=== PATIENT | male | born 2000 | race Caucasian/White ===

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

== ENCOUNTER 2021-06-17 17:41 | Outpatient (REF) | payer BC, SELFPAY ==
[2021-06-17 19:06] LABS: HCT 46.3 % (40.0-50.0); HGB 15.3 g/dL (13.5-17.5); MCV 90.8 fL (80-95); MPV 10.7 fL (8.0-11.0); Platelet Count 271 10^3/uL (130-400); RDW 12.1 % (11.8-14.1); RDW-SD 40.5 fL; WBC 7.82 10^3/uL (4.4-10.8)
[2021-06-17 19:25] LABS: ALT 66 U/L (16-63); AST 20 U/L (15-37); Albumin 4.6 g/dL (3.4-5.0); Alkaline Phosphatase 95 U/L (46-116); Anion Gap 6.3 mmol/L (3-11); BUN 14 mg/dL (7-18); Bilirubin, Total 0.9 mg/dL (0.2-1.0); CO2 29.7 mmol/L (21.0-32.0); Calcium 9.8 mg/dL (8.5-10.1); Chloride 104 mmol/L (98-107); Glucose 88 mg/dL (74-106); Potassium 4.4 mmol/L (3.5-5.1); Sodium 140 mmol/L (136-145); TSH (W/Ref FT4) 0.66 uIU/mL (0.36-3.74); Total Protein 8.1 g/dL (6.4-8.2)
== END 2021-06-17 17:42 | disposition home or self-care (01) ==
LOC: NCHCN 17:41
PROVIDERS: PCP Physician Assistant; Visit Provider Nurse Practitioner
DX: R53.83 Other fatigue (principal)
CPT/HCPCS: 80053; 85027; 84443

== ENCOUNTER 2021-09-30 18:53 | Outpatient (REF) | payer BC, SELFPAY ==
[2021-10-01 21:54] LABS: COVID-19 RT-PCR UVMMC Result Positive (Negative)
== END 2021-09-30 18:54 | disposition home or self-care (01) ==
LOC: NCHCN 18:53
PROVIDERS: PCP Physician Assistant; Visit Provider Nurse Practitioner
DX: Z20.822 Contact with and (suspected) exposure to COVID-19 (principal)
CPT/HCPCS: U0003

== ENCOUNTER 2022-04-09 17:00 | Emergency (ER) | payer BC, SELFPAY ==
[2022-04-09 17:10] VITALS: BP 143/88; PULSE 90; RESP 14; TEMP 36; O2SAT 100
--- NOTE | 2022-04-09 17:30 | DI.RAD_ITS ---
Exam(s) XR FINGER LT LITTLE EXAM: XR FINGER LT LITTLE EXAM DATE/TIME: CLINICAL HISTORY: dislocated finger. TECHNIQUE: 2D digital imaging was performed of the left finger. Views were obtained. PA/AP, obliq ue, and lateral views were obtained. COMPARISON: None. FINDINGS: BONES: No acute fracture is present. No bony destructive lesion is seen. JOINTS: There is dorsal and ulnar dislocation of the PIP joint. There is a very tiny density adjacen t to the posterior aspect of the middle phalanx which may represent a tiny fracture fragment. SOFT TISSUE: Normal. IMPRESSION: Dislocation of the PIP joint of the left little finger. DATA REPOSITORY: RADIATION DOSE DELIVERED:
--- NOTE | 2022-04-09 17:45 | DI.RAD_ITS ---
Exam(s) XR FINGER LT LITTLE EXAM: XR FINGER LT LITTLE EXAM DATE/TIME: CLINICAL HISTORY: post reduction. TECHNIQUE: 2D digital imaging was performed of the left finger. Views were obtained. PA/AP, obliq ue, and lateral views were obtained. COMPARISON: Priors available for comparison. FINDINGS: BONES: No acute fracture is present. No bony destructive lesion is seen. JOINTS: There has been successful reduction of the PIP joint dislocation. The little finger is now i n normal anatomic alignment. SOFT TISSUE: Normal. IMPRESSION: No evidence of acute fracture or dislocation. DATA REPOSITORY: RADIATION DOSE DELIVERED:
--- NOTE | 2022-04-09 17:53 | DI.VRAD_ITS ---
PROCEDURE INFORMATION: Exam: XR Left Finger(s) Exam date and time: 04/09/2022 5:44 PM Age: 22 years old Clinical indication: Other: Dislocated finger TECHNIQUE: Imaging protocol: Radiologic exam of the Left fingers. Views: Minimum 2 views. COMPARISON: CR XR finger LT ring 11/04/2018 12:32 PM FINDINGS: Bones/joints: no acute fracture. the 5th digit middle phalanx demonstrates ulnar, dorsal, and proximal subluxation/dislocation in relation to the proximal phalanx. Soft tissues: soft tissue swelling. IMPRESSION: Dislocation of the 5th digit middle phalanx as above. Dictated and Authenticated by: Bao Seals MD. Ordering:SUNDAY Jiang MD
--- NOTE | 2022-04-09 18:26 | ED.GENADUL_ITS ---
Discharge Plan Disposition Patient Disposition: HOME Condition: Stable Discharge Details Clinical Impression: Dislocated finger, Avulsion of finger Primary Care Provider: Hiram Swanson ED Provider: Deidre Heller Home Meds and New Rx's Prescriptions: Continued ibuprofen 600 MG tablet 600 mg PO Q6H PRN PRNQty: 30 0RF acetaminophen [Tylenol] 325 MG tablet 650 mg PO Q6H PRN PRNQty: 30 0RF Rx Instructions: Do not take more then 4000 mg in 24 hours Discharge Instructions Additional Instructions: Please follow-up with orthopedics Ibuprofen and Tylenol for pain control Wear splint Return earlier should you have new or worsening complaints Referrals: Jim Sol MD [ [facility] STAFF PHYSICIAN] - Medical Decision Making Reduction tolerated without incident Postreduction film reviewed without acute abnormality Patient with small avulsion noted Finger dislocation reduced Placed in splint Medical Records Medical records reviewed: Yes I reviewed the patient's medical records. Lab Data Lab results reviewed: Yes I reviewed the patient's lab results. HPI General Date/Time Provider Initiated Documentation: 04/09/22 17:16 . HPI Narrative: This 22-year-old male presents with injury to the left fifth digit on hand. He went to catch a ball and noted deformity. He is otherwise reportedly healthy. Denies any additional complaints at this time. Related Data Home Medications Medication Instructions Recorded Confirmed acetaminophen 325 mg tablet 650 mg PO Q6H PRN PRN ##30 10/05/17 05/25/21 (Tylenol) ibuprofen 600 mg tablet 600 mg PO Q6H PRN PRN #30 tabs 10/05/17 05/25/21 Previous Rx's Medication Instructions Recorded acetaminophen 325 mg tablet 650 mg PO Q6H PRN PRN ##30 10/05/17 (Tylenol) ibuprofen 600 mg tablet 600 mg PO Q6H PRN PRN #30 tabs 10/05/17 Allergies Allergy/AdvReac Type Severity Reaction Status Date / Time Penicillins Allergy Severe Hives Unverified 05/25/21 13:19 Cephalosporins Allergy Unknown Hives Unverified 05/25/21 13:19 General Stated Complaint: Trauma LEANN: 4 Review of Systems All systems reviewed & are unremarkable except as noted in HPI and below PFSH All Active Problems (Updated 04/09/22 @ 18:31 by MANOJ Bingham) Dislocated finger (Acute) Avulsion of finger (Acute) Medical History (Updated 04/09/22 @ 18:31 by MANOJ Bingham) Club foot Right inguinal hernia Surgical History Club Foot Repair right inguinal hernia repair (10/05/17) Social History Smoking/Tobacco Use Status: Never Smoking risk assessment performed?: Yes Drug use: Never Current gender identity: male Do you feel safe at home: Yes Do you feel safe in your relationship?: Yes Exam Const General: cooperative, comfortable and no acute distress Extrem Hand/finger images: 1. deformity, n/v intact Course Vital Signs Vital signs: Vital Signs Temperature 36.0 C L 04/09/22 17:10 Pulse 90 04/09/22 17:10 Respiratory Rate 14 04/09/22 17:10 Blood Pressure 143/88 H 04/09/22 17:10 Pulse Oximetry 100 04/09/22 17:10 Temperature 36.0 C L 04/09/22 17:10 Temperature Source Temporal Artery Scan 04/09/22 17:10 Pulse 90 04/09/22 17:10 Respiratory Rate 14 04/09/22 17:10 Respiratory Effort Non-Labored 04/09/22 17:20 Respiratory Depth Normal 04/09/22 17:20 Blood Pressure 143/88 H 04/09/22 17:10 Blood Pressure Position Sitting 04/09/22 17:10 Pulse Oximetry 100 04/09/22 17:10 Oxygen Delivery Method Room Air 04/09/22 17:10 Oxygen Flow Rate 0 04/09/22 17:10 Procedures Orthopedic Joint Reduction Joint #1: Time Out Performed: Yes Side: left Joint Reduction Location: finger Analgesia: digital block Local Anesthesia: Lidocaine 1% Amount of anesthesic used (mL): 3 Technique used: direct manipulation Post-reduction neuro exam: intact Post-reduction vascular: no change Post Reduction X-Ray Obtained: Yes Post Reduction X-Ray Results: reduced Splint Applied: Yes Patient Tolerated Procedure: well PAWSS Have you Been Recently Intoxicated or Drunk Within the Last 30 days?: Yes Have you Ever Experienced Previous Episodes of Alcohol Withdrawal?: No Have you ever Experienced Withdrawal Seizures?: No Have you ever Experienced Delirium Tremens(DT)s?: No Have you ever undergone Alcohol Rehabilitation Treatment (i.e, inpt ot outpatient treatment programs)?: No Have you ever Experienced Blackouts?: No Have you ever Combined Alcohol with other Downers within the last 90 days?: No Have you ever Combined Alcohol with any other Substance of Abuse during the last 90 days?: No Positive Blood Alcohol level on Presentation? [PCS.BAL]: No Evidence of Increased Autonomic Activity (i.e. HR>120, tremor, sweating, agitation, nausea)?: No Result: 1
--- NOTE | 2022-04-09 18:58 | DI.VRAD_ITS ---
PROCEDURE INFORMATION: Exam: XR Left Finger(s) Exam date and time: 04/09/2022 6:24 PM Age: 22 years old Clinical indication: Other: Post reduction TECHNIQUE: Imaging protocol: Radiologic exam of the Left fingers. Views: Minimum 2 views. COMPARISON: CR XR FINGER LT LITTLE 04/09/2022 5:44 PM FINDINGS/IMPRESSION: As compared with the reference examination: 1. Reduction of prior little finger proximal interphalangeal joint dislocation, now in normal anatomic alignment. No acute fracture, dislocation, or aggressive osseous lesion. Mild soft tissue swelling. Dictated and Authenticated by: Alejandro Medrano MD. Ordering:SUNDAY Jiang MD
== END 2022-04-09 18:45 | disposition home or self-care (01) ==
PROVIDERS: Emergency Provider Physician Assistant; PCP Physician Assistant
DX: S63.257A Unspecified dislocation of left little finger, initial encounter (principal); W21.01XA Struck by football, initial encounter
CPT/HCPCS: 26770; 73140

== ENCOUNTER 2022-05-27 17:12 | Outpatient (REF) | payer BC, SELFPAY ==
[2022-05-29 10:20] LABS: COVID-19 RT-PCR UVMMC Result Negative (Negative)
== END 2022-05-27 17:13 | disposition home or self-care (01) ==
LOC: LBN 17:12
PROVIDERS: PCP Physician Assistant; Visit Provider Physician Assistant Medical
DX: Z20.822 Contact with and (suspected) exposure to COVID-19 (principal); R05.8 Other specified cough
CPT/HCPCS: U0003

== ENCOUNTER 2022-06-29 20:16 | Emergency (ER) | payer BC, SELFPAY ==
[2022-06-29] MEDS: Acetaminophen 500 MG TAB 1000 MG PO (20:25)
[2022-06-29 20:26] VITALS: BP 156/81; PULSE 68; RESP 16; TEMP 36.8; O2SAT 99
--- NOTE | 2022-06-29 20:30 | DI.RAD_ITS ---
Exam(s) XR HIP RT COMPLETE AP PELVIS EXAM: XR HIP RT COMPLETE AP PELVIS CLINICAL HISTORY: fall ,right hip pain. TECHNIQUE: 2D digital imaging was performed of the right hip. Two images were obtained. AP pelvis a nd lateral right hip views were obtained. COMPARISON: No exams were available for comparison FINDINGS: BONES: No acute fracture is present. No bony destructive lesion is seen. JOINTS: No dislocation present. SOFT TISSUE: Normal. IMPRESSION: Unremarkable radiographs of the right hip. Unremarkable radiographs of the pelvis. DATA REPOSITORY: RADIATION DOSE DELIVERED:
--- NOTE | 2022-06-29 20:33 | W.ED.GENAD ---
Discharge Plan Disposition Patient Disposition: HOME Condition: Good Discharge Details Chief Complaint: Orthopedic Clinical Impression: Other sprain of right hip, initial encounter Primary Care Provider: Hiram Swanson ED Provider: Hans Villanueva Home Meds and New Rx's Prescriptions: No Action ibuprofen 600 MG tablet 600 mg PO Q6H PRN PRNQty: 30 0RF acetaminophen [Tylenol] 325 MG tablet 650 mg PO Q6H PRN PRNQty: 30 0RF Rx Instructions: Do not take more then 4000 mg in 24 hours melatonin 5 mg Tablet 5 mg PO .QHS Discharge Instructions Instructions: Groin Strain (ED) Additional Instructions: At this time your x-ray is negative for fracture. Your symptoms appear consistent with a strain of the muscles or ligaments of the groin and the hip. Please take ice, Tylenol and Motrin as needed. Please follow-up closely with physical therapy for reassessment and further management. If you notice any worsening of your symptoms, or any new symptoms such as vomiting, diarrhea, fever, chills, shortness of breath, chest pain, numbness, weakness, or fainting , please return immediately to the emergency department for reevaluation. Please follow up with your primary care provider as soon as possible for reassessment and reevaluation. As always, it was a pleasure participating in your medical care today. Referrals: Hiram Swanson [Primary Care Provider] - Medical Decision Making 22-year-old male with no significant past medical history except for previous right inguinal hernia repair presents today for right hip pain. 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 He twisted and landed on his right hip. He had mild pain at that time, and brief tingling in his toes for about 30 minutes which resolved on its own. He then came to the ER for further evaluation. Currently he admits the pain in the right hip, but no tingling numbness or weakness. He denies any back pain. Patient denies any saddle anesthesia, numbness or tingling in the groin, change in sensation when wiping. Patient denies any change in sensation during sexual intercourse, difficulty achieving or maintaining an erection or ejaculation, bowel or bladder incontinence, leakage, or retention. Patient denies any weakness in the lower extremities, atypical falls or imbalance. Exam demonstrates well-appearing male, no midline cervical thoracic or lumbar spine tenderness. Patient has mild pain with flexion of the hip and external rotation. No gross deformity otherwise. No saddle anesthesia, testicular scrotal pain, or inguinal hernia. We will get an x-ray to rule out fracture. However inguinal strain or contusion is highest on the differential. We will give a gram of Tylenol. Monitor closely and reassess. 9:34 PM X-rays negative for acute process patient feels well. No evidence of other significant abnormality. Patient feels well otherwise. Suspect groin strain mild ligamentous irritation. Recommend NSAIDs at home, follow-up with physical therapy, and close monitoring. No indication for crutches at this time. Discussed red flags which to return. I have extensively reviewed the treatment plan and discharge instructions with the patient. I have addressed all patient concerns at this time. The patient was made aware of what symptoms to monitor for that would warrant a return to the emergency department. Discussed the plan with the patient, they demonstrate verbal understanding and agreement with our assessment and plan at this time. The documentation in this chart was dictated using [employer] dictation software. Please excuse any dictation errors. FINDINGS: Bones/joints: Unremarkable. No acute fracture. Soft tissues: Unremarkable. IMPRESSION: No acute findings. Thank you for allowing us to participate in the care of your patient. Dictated and Authenticated by: Bairon Barnes MD 06/29/2022 9:31 PM Eastern Time ([place] & [place]) HPI General Date/Time Provider Initiated Documentation: 06/29/22 20:20. HPI Narrative: 22-year-old male with no significant past medical history except for previous right inguinal hernia repair presents today for right hip pain. 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 He twisted and landed on his right hip. He had mild pain at that time, and brief tingling in his toes for about 30 minutes which resolved on its own. He then came to the ER for further evaluation. Currently he admits the pain in the right hip, but no tingling numbness or weakness. He denies any back pain. Patient denies any saddle anesthesia, numbness or tingling in the groin, change in sensation when wiping. Patient denies any change in sensation during sexual intercourse, difficulty achieving or maintaining an erection or ejaculation, bowel or bladder incontinence, leakage, or retention. Patient denies any weakness in the lower extremities, atypical falls or imbalance. Related Data Home Medications Medication Instructions Recorded Confirmed acetaminophen 325 mg tablet 650 mg PO Q6H PRN PRN ##30 10/05/17 06/29/22 (Tylenol) ibuprofen 600 mg tablet 600 mg PO Q6H PRN PRN #30 tabs 10/05/17 06/29/22 melatonin 5 mg tablet 5 mg PO .QHS 06/29/22 06/29/22 Previous Rx's Medication Instructions Recorded acetaminophen 325 mg tablet 650 mg PO Q6H PRN PRN ##30 10/05/17 (Tylenol) ibuprofen 600 mg tablet 600 mg PO Q6H PRN PRN #30 tabs 10/05/17 Allergies Allergy/AdvReac Type Severity Reaction Status Date / Time Penicillins Allergy Severe Hives Unverified 06/29/22 20:32 Cephalosporins Allergy Unknown Hives Unverified 06/29/22 20:32 General Stated Complaint: Orthopedic LEANN: 4 Review of Systems All systems reviewed & are unremarkable except as noted in HPI and below PFSH All Active Problems (Updated 06/29/22 @ 21:40 by Hans Villanueva DO) Other sprain of right hip, initial encounter (Acute) Closed traumatic dislocation of proximal interphalangeal (PIP) joint of left little finger (Acute 04/09/22) Medical History Club foot Club foot (05/07/12) Right inguinal hernia Surgical History Club Foot Repair right inguinal hernia repair (10/05/17) Social History Smoking/Tobacco Use Status: Never Smoking risk assessment performed?: Yes Drug use: Never Current gender identity: male Do you feel safe at home: Yes Do you feel safe in your relationship?: Yes Exam Narrative Exam Narrative: 1.Const: Well-nourished, Well-developed, appearing stated age 2.Eyes: PERRL, no conjunctival injection, and symmetrical lids. 3.ENT: Atraumatic external nose and ears. Moist MM. Neck: Symmetric, trachea midline, No thyromegaly. 4.CVS: +S1/S2, No murmurs or gallops. Peripheral pulses 2+ and equal in all extremities. Brisk capillary refill in all extremities. 5.RESP: Unlabored respiratory effort. Clear to auscultation bilaterally. No wheezes rales or rhonchi 6.GI: Soft, Nontender/Nondistended, No hepatosplenomegaly. No guarding or rebound. 7.MSK: Normocephalic/Atraumatic, Extremities w/o deformity or ttp No cyanosis or clubbing, Normal movement of all extremities no midline tenderness to palpation over the CTLS spine. Normal ROM in flexion, extension, side bend, and rotation. Patient has +5 out of 5 strength in the lower extremities in dorsiflexion and plantarflexion, knee flexion and extension, hip flexion and extension. Normal strength for dorsiflexion and plantar flexion of the great toe bilaterally. There is +2 over 2 dorsalis pedis pulses bilaterally. There is normal sensation to the skin with light touch at the foot, knee, and hip. Normal saddle sensation. Good sensation over the deep sural nerve area bilaterally. Rectal exam deferred. Reflexes are +2 over 4 in the patellar reflex bilaterally. +5 out of 5 strength in the medial, ulnar, radial nerve distribution bilaterally in the hands as well as intact light touch sensation to these dermatomes on the hands Inguinal region demonstrates no hernia, no testicular tenderness, no focal pain. Patient does have mild pain with flexion of the right hip, and external rotation. Mild pain with logroll of the hip laterally. 8.Skin: Warm, Dry. No rashes or lesions. 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 Sensation grossly intact, no focal neurologic deficits. 10.Psych: (AAO) x3. Appropriate mood and affect Course Vital Signs Vital signs: Vital Signs Temperature 36.8 C 06/29/22 20:26 Pulse 68 06/29/22 20:26 Respiratory Rate 16 06/29/22 20:26 Blood Pressure 156/81 H 06/29/22 20:26 Pulse Oximetry 99 06/29/22 20:26 Temperature 36.8 C 06/29/22 20:26 Temperature Source Oral 06/29/22 20:26 Pulse 68 06/29/22 20:26 Respiratory Rate 16 06/29/22 20:26 Respiratory Effort 06/29/22 20:26 Blood Pressure 156/81 H 06/29/22 20:26 Blood Pressure Position Sitting 06/29/22 20:26 Pulse Oximetry 99 06/29/22 20:26 Oxygen Delivery Method Room Air 06/29/22 20:26 Oxygen Flow Rate 0 06/29/22 20:26 Pain Level 7 06/29/22 20:26
--- NOTE | 2022-06-29 21:32 | DI.VRAD_ITS ---
PROCEDURE INFORMATION: Exam: XR Right Hip Exam date and time: 06/29/2022 9:00 PM Age: 22 years old Clinical indication: Pain and injury or trauma; Blunt trauma (contusions or hematomas); Injury date: 06/29/22; Injury details: Fall , right hip pain TECHNIQUE: Imaging protocol: Radiologic exam of the Right hip. Views: 2 or 3 views hip with pelvis when performed. COMPARISON: No relevant prior studies available. FINDINGS: Bones/joints: Unremarkable. No acute fracture. Soft tissues: Unremarkable. IMPRESSION: No acute findings. Dictated and Authenticated by: Bairon Barnes MD. Ordering:EDITH Maxwell MD
== END 2022-06-29 21:45 | disposition home or self-care (01) ==
PROVIDERS: Emergency Provider Student in an Organized Health Care Education/Training Program; PCP Physician Assistant
DX: S73.101A Unspecified sprain of right hip, initial encounter (principal); W10.8XXA Fall (on) (from) other stairs and steps, initial encounter; X50.1XXA Overexertion from prolonged static or awkward postures, initial encounter; Y92.811 Bus as the place of occurrence of the external cause
CPT/HCPCS: 99283; 73502; 99282

== ENCOUNTER 2023-09-10 23:07 | Emergency (ER) | payer BC, SELFPAY ==
[2023-09-10] VITALS (9 sets, daily range): BP systolic 120–141; BP diastolic 64–88; PULSE 66–83; RESP 9–16; TEMP 36.3; O2SAT 99
--- NOTE | 2023-09-10 23:00 | RT.EKG_ITS ---
APPROVED REPORT Exam: Resting ECG Reason for Exam: chest pain Patient Location: E HR:70 bpm ECG Measurements Heart Rate 70 AXIS WI 194 P 42 QRSd 83 QRS 0 QT 346 T 36 QTc 374 Conclusion Sinus rhythm...normal P axis, V-rate 60- 99 normal sinus rhythm, normal axis, normal intervals, non ischemic
--- NOTE | 2023-09-10 23:15 | DI.RAD_ITS ---
Exam(s) XR CHEST 2V PA LATERAL EXAM: XR CHEST 2V PA LATERAL CLINICAL HISTORY: chest pain TECHNIQUE: 2D digital imaging was performed. COMPARISON: CR ABD FLAT UPRIGHT PA CHEST from 06/26/2013 FINDINGS: HEART: Normal size. Aorta: Not dilated. PULMONARY VASCULATURE: Normal. LUNGS: Clear. PLEURAL SPACE: No pleural effusion or pneumothorax. BONE:Unremarkable for age. Soft tissues: Unremarkable. IMPRESSION: No acute abnormality. DATA REPOSITORY: RADIATION DOSE DELIVERED:
--- NOTE | 2023-09-10 23:31 | W.ED.GENAD ---
Discharge Plan Disposition Patient Disposition: Home Condition: Good Discharge Details Clinical Impression: Chest pain Primary Care Provider: Hiram Swanson ED Provider: Briana Thurston Home Meds and New Rx's Prescriptions: No Action ibuprofen 600 MG tablet 600 mg PO Q6H PRN PRNQty: 30 0RF acetaminophen [Tylenol] 325 MG tablet 650 mg PO Q6H PRN PRNQty: 30 0RF Rx Instructions: Do not take more then 4000 mg in 24 hours melatonin 5 mg Tablet 5 mg PO .QHS Discharge Instructions Instructions: Chest Pain (ED) Additional Instructions: You can take tylenol and ibuprofen over the counter for pain; follow the directions on the bottle. Call your primary care doctor today to schedule an appointment this week to follow up on your visit here. Return to the emergency department for new or worsening symptoms including new/different/worse chest pain, shortness of breath, feeling like you are going to pass out, or if you have any other concerns. Medical Decision Making 23yo previously healthy male presenting for chest pain x 1 hour. History from patient and mother at [facility]. Pain is constant, dull, moderate, substernal, and nonradiating. Vital signs and physical exam reassuring, he does have some reproducible tenderness. Suspect likely MSK etiology however does have concerning family history (uncle in 40's from [place], brother has afib). 81mg of ASA SAFETY RISK LEAD, will give additional 243mg here. Also given tylenol PO. EKG NSR, appropriate intervals, no ST segment or T wave abnormalities to suggest occlusive [place]. Labs reviewed as below, CBC & CMP reassuring with no significant abnormalities, BNP normal, troponin negative x 2. CXR independently reviewed, no focal pneumonia or pneumothorax on my view, agree with radiology read below. Repeat EKG reassuring with no dynamic changes, pain improved after tylenol. HEART score 1 for risk factors, low risk. Discharged home; discharge instructions including return precautions were reviewed with patient who verbalized understanding. All questions were answered and they are in full agreement with the plan. Imaging Data Radiologic Study: Imaging: X-Ray Radiologist's impression: IMPRESSION: No active cardiopulmonary disease. HPI General Mode of arrival: ambulatory. Date/Time Provider Initiated Documentation: 09/10/23 23:09. Limitations to Documentation: no limitations. Information obtained by: patient and family. HPI Narrative: 23yo previously healthy male presenting for chest pain x 1 hour. Pain is constant, dull, moderate, substernal, and nonradiating. No alleviating or aggravating factors. Not exertional. No trauma to the area. Was moving laundry up and down stairs much of the day today but states this is not an unusual amount of exertion for him. No shortness of breathing, lightheadness, syncope, LE edema. He is otherwise in his usual state of health with no fevers, chills, rash, nausea, vomiting, abdominal pain, numbness, focal weakness, or other concerns. Took one baby ASA prior to arrival. Family history of early cardiac disease; uncle in his 40's from a heart attach, brother has afib. Related Data Home Medications Medication Instructions Recorded Confirmed acetaminophen 325 mg tablet 650 mg (2 x 325 mg) PO Q6H PRN PRN 10/05/17 09/10/23 (Tylenol) ##30 ibuprofen 600 mg tablet 600 mg PO Q6H PRN PRN #30 tabs 10/05/17 09/10/23 melatonin 5 mg tablet 5 mg PO .QHS 06/29/22 09/10/23 Previous Rx's Medication Instructions Recorded acetaminophen 325 mg tablet 650 mg (2 x 325 mg) PO Q6H PRN PRN 10/05/17 (Tylenol) ##30 ibuprofen 600 mg tablet 600 mg PO Q6H PRN PRN #30 tabs 10/05/17 Allergies Allergy/AdvReac Type Severity Reaction Status Date / Time Penicillins Allergy Severe Hives Unverified 09/10/23 23:14 Cephalosporins Allergy Unknown Hives Unverified 09/10/23 23:14 General Stated Complaint: Chest Pain LEANN: 3 Review of Systems Narrative: see HPI PFSH All Active Problems (Updated 09/11/23 @ 03:20 by Briana Thurston MD) Chest pain (Acute) Closed traumatic dislocation of proximal interphalangeal (PIP) joint of left little finger (Acute 04/09/22) 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 Head: Normocephalic, atraumatic Neck: Trachea midline, Neck supple. Cardiac: RRR, no murmurs appreciate Chest: Sternal and anterior chest mildly tender to palpation. Resp: No respiratory distress. CTAB. Abd: Soft, non-distended, nontender Extremities: No deformities. No peripheral edema. Neurologic: GCS 15. Moves all extremities freely against gravity Course Vital Signs Vital signs: Vital Signs Temperature 36.3 C L 09/10/23 23:10 Pulse 83 09/10/23 23:10 Respiratory Rate 16 09/10/23 23:10 Blood Pressure 141/88 H 09/10/23 23:10 Pulse Oximetry 99 09/10/23 23:10 Temperature 36.3 C L 09/10/23 23:10 Temperature Source Temporal Artery Scan 09/10/23 23:10 Pulse 83 09/10/23 23:10 Respiratory Rate 15 09/10/23 23:18 Respiratory Effort Normal 09/10/23 23:18 Respiratory Depth Normal 09/10/23 23:18 Blood Pressure 141/88 H 09/10/23 23:10 Pulse Oximetry 99 09/10/23 23:10 Oxygen Delivery Method Room Air 09/10/23 23:10 Oxygen Flow Rate 0 09/10/23 23:10 Pain Level 8 09/10/23 23:18
[2023-09-10 23:43] LABS: Abs Immature Grans 0.03 10^3/uL (0.0-0.06); Absolute Basophil Count 0.07 10^3/uL (0.0-0.2); Absolute Eosinophil Count 0.26 10^3/uL (0.0-0.7); Absolute Lymphocyte Count 3.29 10^3/uL (1.2-3.4); Absolute Monocyte Count 0.76 10^3/uL (0.1-0.8); Absolute Neutrophil Count 4.13 10^3/uL (1.2-6.7); Basophils % 0.8; HCT 41.8 % (40.0-50.0); HGB 14.5 g/dL (13.5-17.5); Immature Grans % 0.4; Lymphocytes % 38.5; MCH 30.1 pg (27.0-33.0); MCHC 34.7 % (32.0-36.0); MCV 87 fL (80-95); MPV 9.8 fL (8.0-11.0); Monocytes % 8.9; Neutrophils % 48.4; Platelet Count 232 10^3/uL (130-400); RBC 4.82 10^6/uL (4.36-5.78); RDW 11.9 % (11.8-14.1); WBC 8.54 10^3/uL (4.4-10.8)
[2023-09-10] MEDS: Aspirin 81 MG CHEW 243 MG CH (23:45)
[2023-09-10 23:58] LABS: INR 1.1 (0.9-1.1); PTT Activated 25.8 sec (23.6-32.8); Prothrombin Time 10.7 sec (9.1-11.1)
[2023-09-11] VITALS (39 sets, daily range): BP systolic 97–118; BP diastolic 48–78; PULSE 54–83; RESP 13–24
[2023-09-11 00:11] LABS: ALT 44 U/L (16-63); AST 18 U/L (15-37); Albumin 3.9 g/dL (3.4-5.0); Alkaline Phosphatase 98 U/L (46-116); Anion Gap 5.6 mmol/L (3-11); BUN 12 mg/dL (7-18); Bilirubin, Total 0.7 mg/dL (0.2-1.0); CO2 32.4 mmol/L (21.0-32.0); CREATININE 1.2 mg/dL (0.70-1.30); Calcium 9.2 mg/dL (8.5-10.1); Chloride 103 mmol/L (98-107); Glucose 89 mg/dL (74-106); Magnesium 1.8 mg/dL (1.8-2.4); Potassium 4.1 mmol/L (3.5-5.1); Sodium 141 mmol/L (136-145); Total Protein 7.5 g/dL (6.4-8.2); Troponin I < 50 ng/L (<or=60)
[2023-09-11 00:12] LABS: NT-proBNP < 5 pg/mL (<300)
[2023-09-11 00:16] LABS: D-Dimer 132 ng/mlFEU (<500)
--- NOTE | 2023-09-11 00:49 | DI.VRAD_ITS ---
PROCEDURE INFORMATION: Exam: XR Chest Exam date and time: 09/11/2023 12:29 AM Age: 23 years old Clinical indication: Pain; Chest pressure TECHNIQUE: Imaging protocol: Radiologic exam of the chest. Views: 2 views. COMPARISON: No relevant prior studies available. FINDINGS: Lungs: There is no evidence of focal pulmonary consolidation. The pulmonary vasculature is normal. Pleural spaces: There is no evidence of pneumothorax. There are no pleural effusions present. Heart/Mediastinum: The cardiac silhouette is within normal limits. The mediastinum is normal. Bones/joints: The spine, sternum, ribs, and pectoral girdles show no evidence of acute abnormality Soft tissues: There are no soft tissue masses or calcifications. IMPRESSION: No active cardiopulmonary disease. Dictated and Authenticated by: Sarmad Alvarez MD. Ordering:AYDEE Warren MD
[2023-09-11] MEDS: Acetaminophen 500 MG TAB 1000 MG PO (01:07)
--- NOTE | 2023-09-11 02:00 | RT.EKG_ITS ---
APPROVED REPORT Exam: Resting ECG Reason for Exam: repeat chest pain Patient Location: E HR:64 bpm ECG Measurements Heart Rate 64 AXIS NH 202 P 39 QRSd 86 QRS 4 QT 383 T 43 QTc 394 Conclusion Sinus rhythm.. V-rate 60- 99 Borderline prolonged NH interval...NH >202, V-rate 50- [address] segment or T wave abnormalities to suggest occlusive [place]
[2023-09-11 02:58] LABS: Troponin I < 50 ng/L (<or=60)
== END 2023-09-11 03:28 | disposition home or self-care (01) ==
PROVIDERS: Emergency Provider Student in an Organized Health Care Education/Training Program; PCP Physician Assistant
DX: R07.9 Chest pain, unspecified (principal); Z82.49 Family history of ischemic heart disease and other diseases of the circulatory system
CPT/HCPCS: 36415; 80053; 93005; 99283; 71046; 83735; 83880; 84484; 85025; 85379; 85610; 85730; 93010

== ENCOUNTER 2023-12-21 13:03 | Outpatient (REF) | payer BC, SELFPAY ==
[2023-12-21 15:36] LABS: Abs Immature Grans 0.02 10^3/uL (0.0-0.06); Absolute Basophil Count 0.06 10^3/uL (0.0-0.2); Absolute Eosinophil Count 0.16 10^3/uL (0.0-0.7); Absolute Lymphocyte Count 2.23 10^3/uL (1.2-3.4); Absolute Monocyte Count 0.47 10^3/uL (0.1-0.8); Absolute Neutrophil Count 4.29 10^3/uL (1.2-6.7); Basophils % 0.8; Eosinophils % 2.2; HCT 45.9 % (40.0-50.0); HGB 15.4 g/dL (13.5-17.5); Immature Grans % 0.3; Lymphocytes % 30.8; MCH 30.4 pg (27.0-33.0); MCHC 33.6 % (32.0-36.0); MCV 91 fL (80-95); MPV 10.6 fL (8.0-11.0); Monocytes % 6.5; Neutrophils % 59.4; Platelet Count 251 10^3/uL (130-400); RBC 5.07 10^6/uL (4.36-5.78); RDW 12.3 % (11.8-14.1); RDW-SD 40.5 fL; WBC 7.23 10^3/uL (4.4-10.8)
[2023-12-21 16:49] LABS: Vitamin D 25 Total 18.6 ng/mL (30-100)
[2023-12-21 16:50] LABS: ALT 45 U/L (16-63); AST 18 U/L (15-37); Albumin 4.2 g/dL (3.4-5.0); Alkaline Phosphatase 94 U/L (46-116); Anion Gap 9.4 mmol/L (3-11); BUN 13 mg/dL (7-18); Bilirubin, Total 0.7 mg/dL (0.2-1.0); CO2 29.6 mmol/L (21.0-32.0); CREATININE 0.9 mg/dL (0.70-1.30); Calcium 9.3 mg/dL (8.5-10.1); Chloride 106 mmol/L (98-107); Estimated GFR 122.31 (mL/min/1.73m2); Glucose 78 mg/dL (74-106); Potassium 4.8 mmol/L (3.5-5.1); Sodium 145 mmol/L (136-145); TSH (W/Ref FT4) 1.32 uIU/mL (0.36-3.74); Total Protein 7.5 g/dL (6.4-8.2); Vitamin B12 357 pg/mL (193-986)
[2023-12-23 17:18] LABS: Testosterone, Total 344 ng/dL (240-950)
== END 2023-12-21 13:04 | disposition home or self-care (01) ==
LOC: NCHCN 13:03
PROVIDERS: PCP Physician Assistant; Visit Provider Nurse Practitioner Family
DX: R53.83 Other fatigue (principal); E55.9 Vitamin D deficiency, unspecified
CPT/HCPCS: 80053; 82306; 84403; 82607; 84443; 85025

== ENCOUNTER 2024-02-20 11:19 | Outpatient (REF) | payer BC, SELFPAY ==
[2024-02-24 17:51] LABS: Testosterone, Total 335 ng/dL (240-950)
== END 2024-02-20 11:20 | disposition home or self-care (01) ==
LOC: NCHCN 11:19
PROVIDERS: PCP Physician Assistant; Visit Provider Nurse Practitioner Family
DX: R53.83 Other fatigue (principal)
CPT/HCPCS: 84403

== ENCOUNTER 2025-08-18 14:53 | Outpatient (REF) | payer BC, SELFPAY ==
[2025-08-19 12:45] LABS: Chlamydia Result Negative (Negative); GC Result Negative (Negative)
== END 2025-08-18 14:54 | disposition home or self-care (01) ==
LOC: NCHCN 14:53
PROVIDERS: PCP Nurse Practitioner Family; Visit Provider Nurse Practitioner Family
DX: Z11.3 Encounter for screening for infections with a predominantly sexual mode of transmission (principal)
CPT/HCPCS: 87491; 87591